=== PATIENT | male | born 1990 | race Caucasian/White ===

== ENCOUNTER → 2018-01-15 | Emergency (ER) | payer OTHER ==
[~2018-01-15] VITALS: Ht 188 cm; Wt 86.2 kg
[~2018-01-15] MED LIST: BENZTROPINE; HYDROXYZINE HCL50 MG; LAMICTAL150 M1; OLANZAPINE15 MG; OLANZAPINE20 MG; TRAZODONE HCL100 MG
== END | disposition home or self-care (01) ==
LOC: ER 14:15
DX: R20.0 Anesthesia of skin (principal); T50.995A Adverse effect of other drugs, medicaments and biological substances, initial encounter